=== PATIENT | male | born 1970 | race American Indian/Alaskan Native ===

== ENCOUNTER 2017-02-19 04:47 | Emergency (ER) | payer SELFPAY ==
[2017-02-19 05:14] VITALS: BP 146/101
== END 2017-02-19 09:17 | disposition left against medical advice (07) ==
LOC: ED 04:47
DX: L02.32 Furuncle of buttock (principal); Z53.21 Procedure and treatment not carried out due to patient leaving prior to being seen by health care provider

== ENCOUNTER 2018-01-14 18:09 | Emergency (ER) | payer SELFPAY ==
[2018-01-14 18:33] VITALS: BP 138/80
--- NOTE | 2018-01-14 19:25 | Emergency Department Report ---
- General Chief Complaint: Skin/Abscess/Foreign Body Stated Complaint: CYST ON BUTTOCKS Time Seen by Provider: 01/14/18 19:20 Source: patient Mode of arrival: Ambulatory Limitations: No Limitations - History of Present Illness Initial Comments: 47-year-old -Citizen Of [place] male comes in for complaint of an abscess to his right buttocks. Patient reports that he gets this often at least once a year. She denies any drainage any fever or chills or nausea no vomiting. Patient reports he has taken no pain medication at all. Patient has no known drug allergies has no past medical history takes no current medication. -: days(s) (2) Location: other (right buttock) Place: home Patient Tetanus UTD: Yes Associated Symptoms: pain - Related Data Previous Rx's Medication Instructions Recorded Last Taken Type Cephalexin [Keflex] 500 mg PO BID 10 Days #20 capsule 01/14/18 Unknown Rx Ibuprofen [Motrin 800 MG tab] 800 mg PO Q8H PRN #30 tablet 01/14/18 Unknown Rx Allergies Allergy/AdvReac Type Severity Reaction Status Date / Time No Known Allergies Allergy Verified 02/19/17 05:12 ED Review of Systems ROS: Stated complaint: CYST ON BUTTOCKS Other details as noted in HPI Constitutional: denies: chills, fever Eyes: denies: eye pain, eye discharge, vision change ENT: denies: ear pain, throat pain Respiratory: denies: cough, shortness of breath, wheezing Cardiovascular: denies: chest pain, palpitations Endocrine: no symptoms reported Gastrointestinal: denies: abdominal pain, nausea, diarrhea Genitourinary: denies: urgency, dysuria Musculoskeletal: denies: back pain, joint swelling, arthralgia Skin: lesions (lesion on buttocks). denies: rash Neurological: denies: headache, weakness, paresthesias Psychiatric: denies: anxiety, depression Hematological/Lymphatic: denies: easy bleeding, easy bruising ED Past Medical Hx - Past Medical History Previous Medical History?: No - Surgical History Past Surgical History?: No - Social History Smoking Status: Current Every Day Smoker Substance Use Type: None - Medications Home Medications: Home Medications Medication Instructions Recorded Confirmed Last Taken Type Cephalexin [Keflex] 500 mg PO BID 10 Days #20 capsule 01/14/18 Unknown Rx Ibuprofen [Motrin 800 MG tab] 800 mg PO Q8H PRN #30 tablet 01/14/18 Unknown Rx ED Physical Exam - General Limitations: No Limitations General appearance: alert, in no apparent distress - Head Head exam: Present: atraumatic, normocephalic - Eye Eye exam: Present: normal appearance - ENT ENT exam: Present: mucous membranes moist - Neck Neck exam: Present: normal inspection - Respiratory Respiratory exam: Present: normal lung sounds bilaterally. Absent: respiratory distress - Cardiovascular Cardiovascular Exam: Present: regular rate, normal rhythm. Absent: systolic murmur, diastolic murmur, rubs, gallop - GI/Abdominal GI/Abdominal exam: Present: soft, normal bowel sounds - Rectal Rectal exam: Present: deferred - Extremities Exam Extremities exam: Present: normal inspection - Back Exam Back exam: Present: normal inspection - Neurological Exam Neurological exam: Present: alert, oriented X3 - Psychiatric Psychiatric exam: Present: normal affect, normal mood - Skin Skin exam: Present: warm, dry, intact, other (right gluteal cleft erythematous edematous nonfluctuant.) ED Course Vital Signs 01/14/18 18:30 Temperature 99.2 F Pulse Rate 89 Respiratory 16 Rate Blood Pressure 138/80 O2 Sat by Pulse 98 Oximetry ED Medical Decision Making - Medical Decision Making Patient has been evaluated by this provider fast track. I discussed the patient that the abscess is not ready to be incision and drain. I discussed the patient that the center of it is not fluctuant this more firmness and induration on the outer edge. I discussed the patient that he needs to take antibiotics pain medication and do warm Epsom salts soaks as well as warm compresses to the area. Patient verbalized understanding. Patient is requesting for strong medication. I discussed with him the best medication for pain will be ibuprofen patient has tried no medications at all. Critical care attestation.: If time is entered above; I have spent that time in minutes in the direct care of this critically ill patient, excluding procedure time. ED Disposition Clinical Impression: Cellulitis and abscess of buttock Disposition: [id number] TO HOME OR SELFCARE Is pt being admited?: No Does the pt Need Aspirin: No Condition: Stable Instructions: Cellulitis (ED) Additional Instructions: Please complete antibiotics as prescribed. Please take pain medication as needed. Please apply warm to hot compresses to the abscess area. He can return back to the emergency room if persist or gets worse. Prescriptions: Cephalexin [Keflex] 500 mg PO BID 10 Days #20 capsule Ibuprofen [Motrin 800 MG tab] 800 mg PO Q8H PRN #30 tablet PRN Reason: Pain Referrals: PRIMARY CARE, [Primary Care Provider] - 3-5 Days [facility] [Provider Group] - 3-5 Days Forms: Work/School Release Form(ED)
[2018-01-14] MEDS ORDERED: MOTRIN PO ONE (19:32)
== END 2018-01-14 19:47 | disposition home or self-care (01) ==
LOC: ED 18:09
DX: L02.31 Cutaneous abscess of buttock (principal); L03.317 Cellulitis of buttock; F17.200 Nicotine dependence, unspecified, uncomplicated
CPT/HCPCS: 99282